=== PATIENT | female | born 1985 | race Caucasian/White ===

== ENCOUNTER 2017-05-09 18:27 | Emergency (ER) | payer SELFPAY ==
[~2017-05-09] VITALS: Ht 162.6 cm; Wt 122.3 kg
[2017-05-09 22:57] VITALS: BP 132/80
[2017-05-09] MEDS ORDERED: IBUPROFEN 800 MG TABLET PO ONE (23:30)
== END 2017-05-09 23:26 | disposition home or self-care (01) ==
LOC: EMS 18:28
DX: S96.912A Strain of unspecified muscle and tendon at ankle and foot level, left foot, initial encounter (principal); M25.532 Pain in left wrist; M25.562 Pain in left knee; F17.210 Nicotine dependence, cigarettes, uncomplicated; W19.XXXA Unspecified fall, initial encounter; Y93.89 Activity, other specified; Y92.89 Other specified places as the place of occurrence of the external cause; Y99.8 Other external cause status
CPT/HCPCS: 99285